=== PATIENT | male | born 1960 | race Caucasian/White ===

== ENCOUNTER 2019-02-09 09:31 | Emergency (ER) | payer OTHER ==
[2019-02-09 09:52] LABS: PLATELET COUNT 384 10^3/uL (150-400)
--- NOTE | 2019-02-09 10:10 | EDPHY ---
H & P Stated Complaint: called by dr geni Wisdom on screening labs Time Seen by Provider: 02/09/19 09:38 HPI/ROS: CHIEF COMPLAINT: High sodium level HISTORY OF PRESENT ILLNESS: 58-year-old male with hypertension presents with a high sodium level. Yesterday he had a routine yearly check with his physician. Laboratory tests revealed hypernatremia with a serum sodium level of 159. He is currently asymptomatic. He takes lisinopril daily for hypertension. No recent change in medications. No recent illness and no weakness or headache. REVIEW OF SYSTEMS: complete 10 point ROS reviewed and is negative except for the noted elements in the HPI - Personal History Current Tetanus Diphtheria and Acellular Pertussis (TDAP): Yes - Medical/Surgical History Hx Asthma: No Hx Chronic Respiratory Disease: No Hx Diabetes: No Hx Cardiac Disease: No Hx Renal Disease: No Hx Cirrhosis: No Hx Alcoholism: No Hx HIV/AIDS: No Hx Splenectomy or Spleen Trauma: No Other PMH: gerd htn - Social History Smoking Status: Never smoked - Physical Exam Exam: General Appearance: Alert, pleasant Eyes: Pupils equal and round, no conjunctival pallor ENT, Mouth: Mucous membranes moist Neck: Normal inspection Respiratory: Lungs are clear to auscultation Cardiovascular: Regular rate and rhythm Gastrointestinal: Abdomen is soft and nontender Neurological: A&O, nonfocal, normal gait Skin: Warm and dry Extremities: Normal inspection, no swelling Psychiatric: Mood and affect normal Constitutional: Initial Vital Signs Temperature (C) 37.3 C 02/09/19 09:34 Heart Rate 84 02/09/19 09:34 Respiratory Rate 17 02/09/19 09:34 Blood Pressure 161/114 H 02/09/19 09:34 O2 Sat (%) 96 02/09/19 09:34 O2 Delivery Mode Room Air Allergies/Adverse Reactions: Penicillins Allergy (Verified 02/09/19 09:33) Home Medications: Medication Instructions Recorded Lisinopril 02/09/19 Omeprazole 02/09/19 Medical Decision Making - Diagnostics EKG Interpretation: EKG interpreted by me reveals normal sinus rhythm, rate 82, no ST or T segment changes. Interpretation: Normal EKG ED Course/Re-evaluation: Elevated sodium level yesterday, likely lab error as pt asymptomatic and prior sodium levels normal in review of his medical record. Will repeat chem7. Repeat sodium level today is normal. No indication for further evaluation. Results d/w pt. Will f/u with PCP. - Data Points Laboratory Results: Laboratory Results 02/09/19 09:45 02/09/19 09:45 Point of Care Test Results: Chemistry 02/09/19 09:49 POC Sodium 140 mEq/L mEq/L (135-145) POC Potassium 4.2 mEq/L mEq/L (3.3-5.0) POC Chloride 103 mEq/L mEq/L (97-110) POC Total CO2 20 mEq/L L mEq/L (22-31) POC BUN 12 mg/dL mg/dL (7-23) POC Creatinine 1.0 mg/dL mg/dL (0.7-1.3) POC Glucose 99 mg/dL mg/dL (70-100) ISTAT H&H 02/09/19 09:49 POC Hgb 16.7 gm/dL gm/dL (13.7-17.5) POC Hct 49 % % (40-51) Departure - Departure Disposition: Home, Routine, Self-Care Clinical Impression: normal sodium level Condition: Good Instructions: Additional Information Additional Instructions: Your sodium level is normal. The abnormal reading yesterday was a laboratory error. Referrals: Cl Villarreal DO [Primary Care Provider] - As per Instructions
--- NOTE | 2019-02-09 15:05 | CPEKG ---
Test Reason : OPEN Blood Pressure : / mmHG Vent. Rate : 082 BPM Atrial Rate : 082 BPM P-R Int : 152 ms QRS Dur : 093 ms QT Int : 378 ms P-R-T Axes : 029 001 022 degrees QTc Int : 442 ms Sinus rhythm Confirmed by Krysta Barney ([id number]) on 02/09/2019 3:05:28 PM Referred By: Krysta Barney Confirmed By:Krysta Barney
[2019-02-09 16:10] VITALS: BP 130/80
== END 2019-02-09 10:36 | disposition home or self-care (01) ==
DX: Z03.89 Encounter for observation for other suspected diseases and conditions ruled out (principal); R79.9 Abnormal finding of blood chemistry, unspecified; I10 Essential (primary) hypertension; Z79.899 Other long term (current) drug therapy
CPT/HCPCS: 82435-PO; 82565-PO; 82947-PO; 84132-PO; 84295-PO; 84520-PO; 85014-ER